=== PATIENT | male | born 1990 | race Caucasian/White ===

== ENCOUNTER 2016-08-16 00:36 | Emergency (ER) | payer SELFPAY ==
[2016-08-16] MEDS ORDERED: Ketorolac Tromethamine 60 MG/2 ML VIAL ONE (00:55)
--- NOTE | 2016-08-16 01:19 | PICIS ---
[facility] EMERGENCY RECORD TRIAGE (00:42 CHOB) TRIAGE NOTES: sudden low back pain that started tonight sahilx e playing on the floor with his son. pt states he bent over, felt a pop and has been having low back pain that radiates to sacrum. (00:42 CHOB) PATIENT: NAME: Kunal Petty, AGE: 26, GENDER: male, : Wed1990, TIME OF GREET: Sun Aug 16, 2016 00:36, PREFERRED LANGUAGE: Setswana, ETHNICITY: Not or , ECODE BILLING MAP: [facility], SSN: [id number], Zip Code: [address], PHONE: , , , PERSON ID: [id number], PAYMENT: [employer] Self Pay, PCP: MD Carroll Kyle. (00:42 CHOB) KG WEIGHT: 117.03 (est.). (00:44 CHOB) COMPLAINT: Back Pain. (00:42 CHOB) ADMISSION: URGENCY: 4 Non Urgent, ADMISSION SOURCE: Home, TRANSPORT: CAR, BED: ER -02. (00:42 CHOB) ASSESSMENT: Assessment: PT A/OX4, AMBULATES WITH STEADY GAIT, RESPIRATIONS EVEN NON LABORED. HAND FIELD INSPECTOR EQUAL. DENIES NUMBNESS/TINGLING OR INCONTINENCE. NEUROVASCULAR CHECK X4 EXT WNL. NO ACUTE DISTRESS NOTED., Symptoms began 08/16/2016 00:00. (00:48 CHOB) PAIN: Patient complains of pain described as, aching, Location LOW BACK, Pain is constant. (00:48 CHOB) SIRS SCORING: Heart Rate 55-109 (0), Temp range 96.8-101.1 (0), respiratory rate 12-24 (0), Mental Status altered: no (0), Infection or Suspected Infection: No. (00:48 CHOB) TRIAGE SCREENING: Patient denies suicidal ideation, Patient denies presence of domestic violence. (00:48 CHOB) PROVIDERS: TRIAGE NURSE: Letty Lawson RN. (00:42 CHOB) VITAL SIGNS: BP 152/101, Pulse 77, (Regular), Resp 18, (Non-Labored), Temp 97.7, (Oral), Pain 10, (Constant), O2 Sat 96, on Room Air, Time 08/16/2016 00:38. (00:38 CHOB) BP 162/123, Pulse 84, Resp 17, O2 Sat 96, on Room Air, Time 08/16/2016 00:44. (00:44 CHOB) PREVIOUS VISIT ALLERGIES: No Known Drug Allergies. (00:42 CHOB) No Known Drug Allergies. (00:48 CHOB) KNOWN ALLERGIES No Known Drug Allergies (Unconfirmed) CURRENT MEDICATIONS (00:49 CHOB) None VITAL SIGNS VITAL SIGNS: BP: 152/101, Pulse: 77 (Regular), Resp: 18 (Non-Labored), Temp: 97.7 (Oral), Pain: 10 (Constant), O2 sat: 96 on Room Air, Time: 08/16/2016 00:38. (00:38 CHOB) BP: 162/123, Pulse: 84, Resp: 17, O2 sat: 96 on Room Air, Time: 08/16/2016 00:44. (00:44 CHOB) BP: 138/92, Pulse: 82, Resp: 19, Temp: 97.4, Pain: 9, O2 sat: 96 on RA, &a-1R&a+25V*p+0X*j5194H*c202B*c15G*c2P*p-0X&a-25V&a+1R Name: Kunal Petty : 1990 M26 MedRec: [id number] AcctNum: [id number] Prepared: Emily Aug 16, 2016 01:14 by Interface Page 1 of 6 pMD [facility] EMERGENCY RECORD Time: 08/16/2016 01:10. (01:10 CHOB) NURSING ASSESSMENT: BACK (00:49 CHOB) CONSTITUTIONAL: Complex assessment performed, Patient arrives ambulatory, Gait steady, History obtained from patient, Patient appears, in distress due to pain, Patient cooperative, Patient alert, Oriented to person, place and time, Skin warm, Skin dry, Skin normal in color, Mucous membranes pink, Mucous membranes moist, Patient is well-groomed, Patient complains of BACK PAIN. PAIN: aching pain, to the lower back, Pain radiates, DOWN LEFT SIDE OF SACRUM, constant, on a scale 0-10 patient rates pain as 10. BACK: Back assessment findings include tenderness to, bilateral lower back, Right radial pulse +3(easily palpated, considered normal), Left radial pulse +3(easily palpated, considered normal), Left dorsalis pedis pulse +3(easily palpated, considered normal), Right dorsalis pedis pulse +3(easily palpated, considered normal). NECK: Neck assessment findings include trachea midline, Inspection findings include no swelling. SAFETY: Side rails up, Cart/Stretcher in lowest position, Family at bedside, Call light within reach, Hospital ID band on. NURSING PROCEDURE: DISCHARGE NOTE (: CHOB) DISCHARGE: Patient discharged to home, ambulating without assistance, driving self, unaccompanied, Patient requested and was provided an electronic copy of Discharge Instructions, Discharge instructions given to patient, Simple or moderate discharge teaching performed, by RADHA ANDERSON, Above person(s) verbalized understanding of discharge instructions and follow-up care. BELONGINGS: Belongings and valuables with patient at time of discharge include:, Belongings remain with patient. SAFETY: Side rails up, Cart/Stretcher in lowest position, Family at bedside, Call light within reach, Hospital ID band on. VITAL SIGNS: BP: 138, / 92, Pulse: 82, Resp: 19, Temp: 97.4, Pain: 9, O2 sat: 96, on: RA. MEDICATION ADMINISTRATION SUMMARY Drug Name: Toradol intramuscular, Dose Ordered: 60 mg, Route: Intramuscular, Status: Given, Time: 01:03 08/16/2016, Detailed record available in Medication Service section. MEDICATION SERVICE (01: [facility]) Toradol intramuscular: Order: Toradol intramuscular (ketorolac tromethamine) - Dose: 60 mg : Intramuscular Schedule: Now Ordered by: Mario Irene MD Entered by: MD Emily Castanon Aug 16, 2016 00:59 &a-1R&a+25V*p+0X*z9908G*c202B*c15G*c2P*p-0X&a-25V&a+1R Name: Kunal Petty : 1990 M26 MedRec: [id number] AcctNum: [id number] Prepared: Emily Aug 16, 2016 01:14 by Interface Page 2 of 6 pMD [facility] EMERGENCY RECORD Documented as given by: RADHA Severino Aug 16, 2016 01:03 Patient, Medication, Dose, Route and Time verified prior to administration. IM medication, Amount given: 60MG, Medication administered to left deltoid, Correct patient, time, route, dose and medication confirmed prior to administration, Patient advised of actions and side-effects prior to administration, Allergies confirmed and medications reviewed prior to administration, Patient in position of comfort, Side rails up, Cart in lowest position, Family at bedside. HPI BACK (00:55 DHAM) CHIEF COMPLAINT: Patient presents for evaluation of pain, to the left lower back. HISTORIAN: History provided by patient. MECHANISM OF INJURY: Mechanism of injury:, Playing with his 5yo son and bent over and felt pop in the left low back and center of low back. no prior hx of LBP. LOCATION: Symptoms are localized to the back, to lumbar spine, left lumbar region. QUALITY: Pain is sharp in nature, described as stabbing. SEVERITY: Currently symptoms are severe. TIME COURSE: Sudden onset of symptoms, 1 hour ago, There has been no change in the patient's symptoms over time. ASSOCIATED WITH: No associated abdominal pain, No associated bladder incontinence, No associated bowel incontinence, No associated dysuria, No associated fever, No associated inability to ambulate, No associated motor weakness, No associated numbness, No associated problems with urination, No associated radiation of pain, No associated sciatica, No associated tingling, pain radiates to left side of the sacrum but not distal to this. EXACERBATED BY: Patient's condition exacerbated by movement, Patient's condition exacerbated by rotation, Patient's condition exacerbated by supine position, Patient's condition exacerbated by walking. RELIEVED BY: Patient's condition relieved by nothing because patient has not tried anything for relief. RISK FACTORS: Risk factors reviewed, No epidural bleed risk factors, No epidural abcess risk factors. ROS (00:55 DHAM) CONSTITUTIONAL: Negative constitutional review of systems, Historian denies fatigue, denies fever, denies weakness. EYES: Negative eye review of systems. ENT: Negative ears, nose, throat review of systems. CARDIOVASCULAR: Negative cardiovascular review of systems, Historian denies chest pain, denies diaphoresis, denies syncope. RESPIRATORY: Historian denies cough, denies shortness of breath, denies sputum. GI: Historian denies abdominal pain, denies diarrhea, denies melena, denies nausea, denies stool changes, denies vomiting. &a-1R&a+25V*p+0X*a1707S*c202B*c15G*c2P*p-0X&a-25V&a+1R Name: Kunal Petty : 1990 M26 MedRec: [id number] AcctNum: [id number] Prepared: Emily Aug 16, 2016 01:14 by Interface Page 3 of 6 pMD [facility] EMERGENCY RECORD GENITOURINARY MALE: Historian denies dysuria, denies hesitancy, denies incontinence, denies urinary frequency, denies urinary retention, denies urinary urgency. MUSCULOSKELETAL: Historian reports arthralgias, reports back pain, reports injury. SKIN: Negative skin review of systems. NEUROLOGIC: Historian denies dizziness, denies focal weakness, reports gait changes, denies paralysis, denies paresthesias, denies sensory changes, denies vertigo. ENDOCRINE: Negative endocrine review of systems. HEMO/LYMPHATIC: Historian denies abnormal blood clotting, denies easy bruising. ALLERGIC/IMMUNOLOGIC: Normal allergy/immunologic system review. PSYCHIATRIC: Historian denies drug abuse. PAST MEDICAL HISTORY MEDICAL HISTORY: Flu vaccine up to date, 04/2016. Tdap 04/2016. Past medical history includes gastrointestinal disease, irritable bowel syndrome, migraine headaches. (00:48 CHOB) MALE SURGICAL HISTORY: Surgical history of orthopedic surgery, L Knee ACL repair, Surgical history of tonsillectomy. (00:48 CHOB) PSYCHIATRIC HISTORY: No previous psychiatric history,. (00:48 CHOB) SOCIAL HISTORY: Patient drinks socially, once a month, Patient denies drug use, Patient has no smoking history. (00:48 CHOB) FAMILY HISTORY: Family history is non-contributory to this case. (00:48 CHOB) NOTES: I have reviewed the nursing documentation regarding PMHX, social hx, family hx, and surgical history as well as vitals and triage notes and agree. (00:55 DHAM) PHYSICAL EXAM (01:00 DHAM) CONSTITUTIONAL: Vital Signs Reviewed, Patient afebrile, Pulse normal, Blood pressure, hypertensive, Respiratory rate normal, Patient appears non toxic, Patient appears, in mild pain distress, Patient alert and oriented to person, place and time, Nursing notes reviewed. HEAD: Head exam normal. EYES: Eye exam normal. ENT: ENT exam normal. NECK: Neck exam normal. RESPIRATORY CHEST: Respiratory and chest exam normal. CARDIOVASCULAR: Cardiovascular assessment normal. ABDOMEN MALE: Abdominal exam normal, Abdominal exam included findings of abdomen nontender, Bowel sounds normal, Liver normal, Spleen normal, Abdominal aorta normal in size, no mass, no peritoneal signs, No indication of spinal compromise, Per patient hx, denies perianal pain or paresthesias or change in bowel or bladder &a-1R&a+25V*p+0X*j8990B*c202B*c15G*c2P*p-0X&a-25V&a+1R Name: Kunal Petty : 1990 M26 MedRec: [id number] AcctNum: [id number] Prepared: Emily Aug 16, 2016 01:14 by Interface Page 4 of 6 pMD [facility] EMERGENCY RECORD function. severely obese. BACK: Back exam included findings of normal inspection, range of motion normal, Tenderness, midline to the lower back, paraspinal to the left lower back, no costovertebral angle tenderness, no Scoliosis, no pain with straight leg raise, X-rays not ordered, Pt has nl rom in all directions though he does have tenderness in the extremes of motion. He can touch his toes in the sitting position. UPPER EXTREMITY: Upper extremity exam normal. LOWER EXTREMITY: Lower extremity exam included findings of inspection normal, Range of motion normal, Motor strength normal, Sensation intact, Posterior tibial pulse normal, Pedal pulse normal, Anca's negative, no calf tenderness, no palpable cords, Motor exam is normal at the iliopsoas, quads, hamstrings, foot flexors and extensors (normal toe raise and heel raise). NEURO: Neuro exam findings include patient oriented to person, place and time, Carlee coma scale 15, Speech normal, Gait normal, Memory normal, Cranial nerves intact, Deep tendon reflexes normal, no focal motor deficits, no focal sensory deficits, no cerebellar deficits, sensation is intact to light touch in all dermatomes in the lower ext bilat. SKIN: Skin exam included findings of skin warm, dry, and normal in color, no rash. LYMPHATIC: Lymphatic exam normal. PSYCHIATRIC: Psychiatric exam included findings of patient oriented to person place and time, Normal affect, Judgment normal, Insight normal, Remote memory normal, Recent memory normal, Concentration normal, No suicidal ideations. EVENTS TRANSFER: Triage to Emergency Emergency Room -02. (Emily Aug 16, 2016 00:42 CHOB) Removed from Emergency Emergency Room -02. (01:11 CHOB) O2SAT INTERPRETATION (:05 DHAM) O2SAT: Single pulse oximetry, Oxygen saturation 96%, on room air, Oxygen saturation interpretation: Normal, No intervention required. PROBLEM LIST No recorded problems DIAGNOSIS (: DHAM) FINAL: PRIMARY: LOW BACK PAIN. DISPOSITION PATIENT: Disposition Type: Discharge, Disposition: *Discharge Home. (: DHAM) Patient left the department. (01:11 CHOB) INSTRUCTION (:07 DHAM) &a-1R&a+25V*p+0X*e3201W*c202B*c15G*c2P*p-0X&a-25V&a+1R Name: Kunal Petty : 1990 M26 MedRec: [id number] AcctNum: [id number] Prepared: Emily Aug 16, 2016 01:14 by Interface Page 5 of 6 pMD [facility] EMERGENCY RECORD DISCHARGE: BACK AND NECK PAIN, GENERAL. FOLLOWUP: MD Carroll Kyle, [facility], [address] [place] [address], . SPECIAL: Motrin 600-800mg every six hours or Aleve 2 twice a day for pain/inflammation. Range of motion as demonstrated 5-10 times a day Ice on 30 min and off 30 min for several days Return for intractible pain, bowel or bladder difficulties, numbness in the saddle region or any other concerns. See your pcp to recheck your blood pressure as it is elevated tonight and see them also for pain that has not resolved over the next several weeks. PRESCRIPTION No recorded prescriptions IMAGING (:13 CHOB) *DISCHARGE INSTRUCTIONS RECEIPT: Image captured from scanner. *SUPPLY CHARGE SHEET: Image captured from scanner. Jaimes: MERLE=RADHA Lawson, Letty LOWE=MD Teto, Mario &a-1R&a+25V*p+0X*e3171H*c202B*c15G*c2P*p-0X&a-25V&a+1R Name: Kunal Petty : 1990 M26 MedRec: [id number] AcctNum: [id number] Prepared: Emily Aug 16, 2016 01:14 by Interface Page 6 of 6 pMD MTDD
== END 2016-08-16 01:10 | disposition home or self-care (01) ==
LOC: BURERS 00:36
DX: M54.5 Low back pain (principal); Z90.89 Acquired absence of other organs
CPT/HCPCS: 96372; J1885

== ENCOUNTER 2016-09-27 23:47 | Emergency (ER) | payer SELFPAY ==
[2016-09-28] MEDS ORDERED: Ibuprofen 800 MG TAB ONE (00:27)
[2016-09-28] MEDS ORDERED: Cyclobenzaprine 10 MG TAB ONE (00:27)
--- NOTE | 2016-09-28 08:31 | CT ---
PRELIMINARY REPORT/[facility]/EMERGENCY AFTER HOURS PROCEDURE: EXAM: CT Cervical Spine Without Intravenous Contrast. CLINICAL HISTORY: 26 years old, unknown; Pain; Neck pain; Patient HX: Pt slept wrong on neck, l side of neck hurt, tri ed to pop neck on l side, felt "pop", now entire neck hurts with radiating pain to head. ; TECHNIQUE: Axial computed tomography images of the cervical spine without intravenous contrast. Coronal and sagittal reformatted images were created and reviewed. COMPARISON: No relevant prior studies available. FINDINGS: Vertebrae: Evaluation from C5 down is very limited due to artifact from large body habitus. Otherwi se, no evidence of fracture. Discs/spinal canal/neural foramina: No acute findings. No spinal canal stenosis. Soft tissues: Unremarkable. Lung apices: Unremarkable as visualized. IMPRESSION: Evaluation from C5 down is very limited due to artifact from large body habitus. Otherwise, no evidence of fracture. Thank you for allowing us to participate in the care of your patient. Dictated and Authenticated by: Tye Bah MD 09/28/2016 12:34 AM Central Time ([place] \\T\\ Aga) FINAL REPORT CT OF THE CERVICAL SPINE 09/28/[address] of the cervical spine was done for evaluation of neck pain. Axial slices were acquired an d then coronal and sagittal reconstructions were done. There is loss of the normal cervical lordosis which may be due to muscle spasm. No fracture, disloc ation, or disk space narrowing was seen at any cervical level. The C1 to dens distance is normal, a nd the soft tissues are normal in thickness. No central canal or foraminal stenosis was seen. Str eak artifact from the patient's shoulders begins at the C5 level and starts to degrade the images an d gets progressively worse as one goes inferiorly. As a result, evaluation from about C5 and down i s very limited. Small pathology would be missed. IMPRESSION: Somewhat limited study due to body habitus and artifact. Loss of cervical lordosis but no significa nt bony findings. Report in agreement with the preliminary reading by Gabrielle. POS: HOME
== END 2016-09-28 00:45 | disposition home or self-care (01) ==
LOC: BURERS 23:47
DX: S16.1XXA Strain of muscle, fascia and tendon at neck level, initial encounter (principal); M62.838 Other muscle spasm; G43.909 Migraine, unspecified, not intractable, without status migrainosus; X50.1XXA Overexertion from prolonged static or awkward postures, initial encounter
CPT/HCPCS: 72125

== ENCOUNTER 2018-10-29 12:06 | Emergency (ER) | payer SELFPAY | END 2018-10-29 12:41 | disposition home or self-care (01) | LOC: BURERS 12:06 | DX: J02.9 Acute pharyngitis, unspecified (principal); F32.9 Major depressive disorder, single episode, unspecified; Z79.899 Other long term (current) drug therapy | CPT/HCPCS: 87081; 87430; 87804; 99283 ==

== ENCOUNTER 2018-12-27 17:18 | Emergency (ER) | payer SELFPAY ==
[2018-12-27] MEDS ORDERED: Metoclopramide HCl 10 MG/2 ML VIAL ONE (17:32)
[2018-12-27] MEDS ORDERED: Ketorolac Tromethamine 60 MG/2 ML VIAL ONE (17:32)
== END 2018-12-27 17:48 | disposition home or self-care (01) ==
LOC: BURERS 17:18
DX: G43.909 Migraine, unspecified, not intractable, without status migrainosus (principal); F32.9 Major depressive disorder, single episode, unspecified; K58.9 Irritable bowel syndrome, unspecified
CPT/HCPCS: 96372; J1885; J2765

== ENCOUNTER 2019-02-14 19:09 | Emergency (ER) | payer SELFPAY ==
[2019-02-14] MEDS ORDERED: Ondansetron ODT 4 MG TAB ONE (19:23)
[2019-02-14] MEDS ORDERED: Azithromycin 250 MG TAB ONE (20:55)
== END 2019-02-14 20:58 | disposition home or self-care (01) ==
LOC: BURERS 19:09
DX: J02.9 Acute pharyngitis, unspecified (principal); F32.9 Major depressive disorder, single episode, unspecified
CPT/HCPCS: 87081; 87430; 99283; Q0162